=== PATIENT | female | born 1985 | race Hispanic/Latino ===

== ENCOUNTER 2022-02-06 17:20 | Emergency (ER) | payer MEDICAID | END 2022-02-06 19:44 | disposition home or self-care (01) | LOC: ERS 17:20 | DX: R10.9 Unspecified abdominal pain (principal); Z53.29 Procedure and treatment not carried out because of patient's decision for other reasons ==

== ENCOUNTER 2023-02-16 01:56 | Emergency (ER) | payer SELFPAY ==
[2023-02-16 02:35] LABS: Bilirubin Negative (Negative); Blood, Urine Negative (Negative); Clarity Clear (Clear); Glucose, Urine (Dipstick) Normal (Negative); Ketone, Urine Negative (Negative); Leukocyte 250 Leu/uL (Negative); Nitrite Negative (Negative); Protein, Urine (Dipstick) 10 mg/dL (Neg-Trace); Specific Gravity, Urine 1.011 (1.002-1.036); Urobilinogen 3 mg/dL (Less than 2); pH, Urine 7.5 (5.0-9.0)
[2023-02-16 02:37] LABS: CAUTI Indications for Culture Pelvic or flank pain; Pregnancy Test - Urine (BHCG) Negative (Negative); Pregu Control Background? CLEAR/WHITE (CLR/WHITE); Pregu Control Bar Appear? YES (CONTROL BAR); Specific Gravity 1.011 (1.002-1.036)
[2023-02-16 02:52] LABS: Squamous Epithelial 0-3 HPF (0-3)
[2023-02-16 02:54] LABS: Bacteria/HPF 2+ HPF (None Seen); RBC/HPF 0-3 HPF (0-3); Urine Culture Reflex No No
[2023-02-16 02:58] LABS: #Monocytes 0.3 thou/uL (0.11-0.59); #Neutrophils 4.4 thou/uL (1.40-6.50); %Basophils 0.3 % (0.0-1.0); %Eosinophils 0.1 % (0.0-10.0); %Lymphocytes 32.3 % (21.0-51.0); %Monocytes 4.7 % (0.0-10.0); %Neutrophils 62.3 % (42.0-75.0); Hematocrit 37.5 % (36.0-47.0); Hemoglobin 12.2 g/dL (12.0-16.0); Mean Corpuscular HGB CONC 32.5 g/dL (32.0-36.0); Mean Corpuscular Hemoglobin 25.7 pg (27.0-31.0); Mean Corpuscular Volume 78.9 fl (78.0-98.0); Mean Platelet Volume 11.2 fL (7.4-10.4); Platelet Count 188 10x3/uL (130-400); RBC Distribution Width 12.4 % (11.5-14.5); Red Blood Cell (RBC) Count 4.75 mill/uL (4.20-5.40)
[2023-02-16 03:27] LABS: ALT (SGPT) 16 U/L (8-55); AST (SGOT) 18 U/L (5-34); Albumin 3.3 g/dL (3.5-5.0); Alkaline Phosphatase 114 U/L (40-110); Anion Gap 13 mmol/L (10-20); BUN (Urea Nitrogen) 7 mg/dL (7.0-18.7); Bilirubin, Total 0.5 mg/dL (0.2-1.2); Calc. Creatinine Clearance 0 mL/min (70-130); Calcium 7.8 mg/dL (7.8-10.44); Carbon Dioxide 25 mmol/L (22-29); Chloride 101 mmol/L (98-107); Estimated GFR 90; Globulin 3.5 g/dL (2.4-3.5); Glucose 134 mg/dL (70-105); Lipase 23 U/L (8-78); Potassium 2.7 mmol/L (3.5-5.1); Protein, Total 6.8 g/dL (6.0-8.3); Sodium 136 mmol/L (136-145)
== END 2023-02-16 03:30 | disposition home or self-care (01) ==
LOC: ERS 01:56
DX: R10.9 Unspecified abdominal pain (principal); N39.0 Urinary tract infection, site not specified; E87.6 Hypokalemia
CPT/HCPCS: 36415; 80053; 81001; 81025; 83690; 85025; 99285

== ENCOUNTER 2023-11-05 07:22 | Emergency (ER) | payer SELFPAY ==
[2023-11-05 07:50] LABS: #Basophils 0.05 10x3/uL (0.0-0.2); %Basophils 0.5 % (0.0-1.0); %Lymphocytes 39.7 % (21.0-51.0); %Monocytes 5.3 % (0.0-10.0); %Neutrophils 53.3 % (42.0-75.0); Hematocrit 44.7 % (36.0-47.0); Hemoglobin 14.3 g/dL (12.0-16.0); Mean Corpuscular Hemoglobin 27.2 pg (27.0-31.0); Mean Corpuscular Volume 85.1 fL (78.0-98.0); Mean Platelet Volume 10.6 fL (7.4-10.4); Platelet Count 264 10x3/uL (130-400); RBC Distribution Width 13.2 % (11.5-14.5); Red Blood Cell (RBC) Count 5.25 mill/uL (4.20-5.40)
[2023-11-05 08:03] LABS: ALT (SGPT) 24 U/L (8-55); AST (SGOT) 24 U/L (5-34); Albumin 3.7 g/dL (3.5-5.0); Alkaline Phosphatase 88 U/L (40-110); Anion Gap 12 mmol/L (10-20); BUN (Urea Nitrogen) 14 mg/dL (7.0-18.7); Bilirubin, Total 0.7 mg/dL (0.2-1.2); Calc. Creatinine Clearance 0 mL/min (70-130); Calcium 9.2 mg/dL (7.8-10.44); Carbon Dioxide 25 mmol/L (22-29); Chloride 104 mmol/L (98-107); Estimated GFR 69; Globulin 3.9 g/dL (2.4-3.5); Glucose 101 mg/dL (70-105); Potassium 3.8 mmol/L (3.5-5.1); Protein, Total 7.6 g/dL (6.0-8.3); Sodium 137 mmol/L (136-145)
[2023-11-05 08:04] LABS: Prothrombin Time 13.5 sec (12.0-14.7)
[2023-11-05 08:06] LABS: PTT 31.2 sec (22.9-36.1)
[2023-11-05 08:10] LABS: Bilirubin Negative (Negative); Blood, Urine 3+ (Negative); CAUTI Indications for Culture Dysuria,urgency,freq; Clarity Turbid (Clear); Glucose, Urine (Dipstick) Normal (Negative); Ketone, Urine Negative (Negative); Leukocyte 25 Leu/uL (Negative); Nitrite Negative (Negative); Protein, Urine (Dipstick) 20 mg/dL (Neg-Trace); RBC/HPF 21-50 HPF (0-3); Specific Gravity, Urine 1.024 (1.002-1.036); Urobilinogen Normal mg/dL (Less than 2); pH, Urine 6.5 (5.0-9.0)
[2023-11-05 08:28] LABS: Bacteria/HPF 1+ HPF (None Seen)
[2023-11-05 08:29] LABS: Urine Culture Reflex No No
== END 2023-11-05 08:39 | disposition home or self-care (01) ==
LOC: ERS 07:22
DX: N93.9 Abnormal uterine and vaginal bleeding, unspecified (principal); I10 Essential (primary) hypertension; E03.9 Hypothyroidism, unspecified; E11.9 Type 2 diabetes mellitus without complications; E05.00 Thyrotoxicosis with diffuse goiter without thyrotoxic crisis or storm
CPT/HCPCS: 36415; 80053; 81001; 84702; 85025; 85610; 85730; 86900; 86901; 99284

== ENCOUNTER 2024-10-06 15:04 | Outpatient (CLI) | payer SELFPAY ==
[2024-10-06 16:06] LABS: BHCG - Serum Negative (NEGATIVE); Pregs Control Background? CLEAR/WHITE (CLR/WHITE); Pregs Control Bar Appear? YES (CONTROL BAR)
== END 2024-10-06 15:05 | disposition home or self-care (01) ==
LOC: LABBT 15:04
PROVIDERS: ATTEND Urology
DX: Z01.818 Encounter for other preprocedural examination (principal); N20.1 Calculus of ureter
CPT/HCPCS: 84703; 87086; 93005; 93010

== ENCOUNTER 2024-11-05 02:08 | Emergency (ER) | payer SELFPAY ==
[2024-11-05] MEDS ORDERED: Acetaminophen 500 MG TAB ONE (02:43)
[2024-11-05 03:17] LABS: #Basophils 0.04 10x3/uL (0.0-0.2); #Eosinophils 0.15 10x3/uL (0.0-0.7); #Monocytes 0.62 10x3/uL (0.11-0.59); #Neutrophils 4.40 10x3/uL (1.40-6.50); %Basophils 0.4 % (0.0-1.0); %Eosinophils 1.6 % (0.0-10.0); %Lymphocytes 43.1 % (21.0-51.0); %Monocytes 6.7 % (0.0-10.0); %Neutrophils 47.9 % (42.0-75.0); Hematocrit 40.8 % (36.0-47.0); Hemoglobin 13.1 g/dL (12.0-16.0); Mean Corpuscular Hemoglobin 26.5 pg (27.0-31.0); Mean Corpuscular Volume 82.4 fL (78.0-98.0); Platelet Count 258 10x3/uL (130-400); Red Blood Cell (RBC) Count 4.95 mill/uL (4.20-5.40); White Blood Cell (WBC) Count 9.21 10x3/uL (4.8-10.8)
[2024-11-05 03:25] LABS: BHCG - Serum Negative (NEGATIVE); Pregs Control Background? CLEAR/WHITE (CLR/WHITE); Pregs Control Bar Appear? YES (CONTROL BAR)
[2024-11-05 03:36] LABS: Anion Gap 15 mmol/L (10-20); BUN (Urea Nitrogen) 11 mg/dL (7.0-18.7); Calc. Creatinine Clearance 0 mL/min (70-130); Calcium 8.6 mg/dL (7.8-10.44); Carbon Dioxide 23 mmol/L (22-29); Chloride 104 mmol/L (98-107); Glucose 101 mg/dL (70-105); Magnesium 1.8 mg/dL (1.6-2.6); Potassium 3.7 mmol/L (3.5-5.1); Sodium 138 mmol/L (136-145)
[2024-11-05 03:39] LABS: Troponin I Less than 0.010 ng/mL (< 0.028)
[2024-11-05 03:53] LABS: Free T4 (Free Thyroxine) 0.95 ng/dL (0.70-1.48); Thyroid Stimulating Hormone 3.1133 uIU/mL (0.35-4.94)
[2024-11-05 04:48] LABS: Troponin I Less than 0.010 ng/mL (< 0.028)
== END 2024-11-05 05:00 | disposition home or self-care (01) ==
LOC: ERS 02:08
DX: I10 Essential (primary) hypertension (principal); Z79.899 Other long term (current) drug therapy
CPT/HCPCS: 36415; 71045; 80048; 83735; 84439; 84443; 84484; 84703; 85025; 93005; 96374

== ENCOUNTER 2025-03-02 16:09 | Emergency (ER) | payer OTHER ==
[2025-03-02] MEDS ORDERED: cloNIDine 0.1 MG TAB ONE (17:26)
[2025-03-02 17:32] LABS: #Basophils 0.04 10x3/uL (0.0-0.2); #Eosinophils 0.08 10x3/uL (0.0-0.7); #Monocytes 0.54 10x3/uL (0.11-0.59); #Neutrophils 5.39 10x3/uL (1.40-6.50); %Basophils 0.4 % (0.0-1.0); %Eosinophils 0.8 % (0.0-10.0); %Lymphocytes 37.2 % (21.0-51.0); %Monocytes 5.6 % (0.0-10.0); %Neutrophils 55.8 % (42.0-75.0); Hematocrit 44.4 % (36.0-47.0); Hemoglobin 14.0 g/dL (12.0-16.0); Mean Corpuscular Hemoglobin 25.8 pg (27.0-31.0); Mean Corpuscular Volume 81.8 fL (78.0-98.0); Platelet Count 260 10x3/uL (130-400); Red Blood Cell (RBC) Count 5.43 mill/uL (4.20-5.40); White Blood Cell (WBC) Count 9.66 10x3/uL (4.8-10.8)
[2025-03-02 17:48] LABS: BHCG - Serum Negative (NEGATIVE); Pregs Control Background? CLEAR/WHITE (CLR/WHITE); Pregs Control Bar Appear? YES (CONTROL BAR)
[2025-03-02 17:51] LABS: ALT (SGPT) 27 U/L (Less than 34); AST (SGOT) 31 U/L (11-34); Albumin 3.6 g/dL (3.1-4.5); Alkaline Phosphatase 113 U/L (40-110); Anion Gap 15 mmol/L (10-20); BUN (Urea Nitrogen) 12 mg/dL (7.0-18.7); Bilirubin, Total 0.3 mg/dL (0.3-1.2); Calc. Creatinine Clearance 0 mL/min (70-130); Calcium 9.2 mg/dL (7.8-10.44); Carbon Dioxide 24 mmol/L (22-29); Chloride 104 mmol/L (98-107); Globulin 3.7 g/dL (2.4-3.5); Glucose 148 mg/dL (70-105); Potassium 3.5 mmol/L (3.5-5.1); Sodium 139 mmol/L (136-145)
== END 2025-03-02 18:22 | disposition home or self-care (01) ==
LOC: ERS 16:09
DX: I10 Essential (primary) hypertension (principal); J32.9 Chronic sinusitis, unspecified; R29.700 NIHSS score 0
CPT/HCPCS: 80053; 84484; 84703; 85025; 93005; 99283